=== PATIENT | female | born 1995 | race American Indian/Alaskan Native ===

== ENCOUNTER 2016-10-15 09:25 | Emergency (ER) | payer BC, OTHER ==
[2016-10-15 09:40] VITALS: BP 117/74
[2016-10-15] MEDS ORDERED: Amoxicillin 500 MG Cap PO ONE (09:55)
--- NOTE | 2016-10-15 10:02 | EDM.PDOC ---
ED HPI RENAL/ - General Chief Complaint: Genitourinary Problem Stated Complaint: [id number] UTI Time Seen by Provider: 10/15/16 09:59 Source of Information: Reports: Patient History Limitations: Reports: No limitations - History of Present Illness INITIAL COMMENTS - FREE TEXT/NARRATIVE: 20 yo [place] Female c/o left low back pain and dysuria X 3 days. Pt. admits to IUP approx. 6 weeks Symptom Onset Date: 10/12/16 Symptom Onset Time: 12:00 Timing/Duration: Reports: Day(s): Location: Reports: suprapubic Quality: Reports: cramping Severity: moderate Worsens with: Reports: urinating Associated Symptoms: Reports: burning, dysuria, frequency, urgency - Related Data Allergies/ADRs: Allergies Allergy/AdvReac Type Severity Reaction Status Date / Time acetaminophen Allergy Rash Verified 10/15/16 09:37 [From Tylenol-Codeine] codeine phosphate Allergy Rash Verified 10/15/16 09:37 [From Tylenol-Codeine] erythromycin base Allergy Rash Verified 10/15/16 09:37 [Erythromycin Base] Home Meds: Home Meds . [No Known Home Meds] 11/23/15 [History] Past Medical History Respiratory History: Reports: Asthma Other Respiratory History: has not taken advair for a long time Gastrointestinal History: Reports: GERD Genitourinary History: Reports: UTI, recurrent Musculoskeletal History: Reports: Other (see below) Other Musculoskeletal History: left hip dysplasia - Infectious Disease History Infectious Disease History: Reports: MRSA - Past Surgical History HEENT Surgical History: Reports: Adenoidectomy, Tonsillectomy Musculoskeletal Surgical History: Reports: Other (see below) Other Musculoskeletal Surgeries/Procedures:: x 7 surgeries on left hip Social & Family History - Family History Family Medical History: Noncontributory - Tobacco Use Smoking Status *Q: Former Smoker Years of Tobacco use: 5 Packs/Tins Daily: 2 Used Tobacco, but Quit: No Second Hand Smoke Exposure: Yes - Caffeine Use Caffeine Use: Reports: None - Alcohol Use Days Per Week of Alcohol Use: 1 Number of Drinks Per Day: 2 Total Drinks Per Week: 2 - Recreational Drug Use Recreational Drug Use: No Drug Use in Last 12 Months: No - Living Situation & Occupation Living situation: Reports: with family Occupation: student ED ROS GENERAL - Review of Systems Review Of Systems: See Below Constitutional: Reports: no symptoms HEENT: Reports: No symptoms Respiratory: Reports: No Symptoms Cardiovascular: Reports: No symptoms Endocrine: Reports: no symptoms GI/Abdominal: Reports: No symptoms : Reports: dysuria, frequency Musculoskeletal: Reports: no symptoms Skin: Reports: no symptoms Neurological: Reports: No Symptoms Psychiatric: Reports: No symptoms Hematologic/Lymphatic: Reports: no symptoms Immunologic: Reports: no symptoms ED EXAM, RENAL/ - Physical Exam Exam: See Below Exam Limited By: No limitations General Appearance: alert, WD/WN, no apparent distress Eye Exam: bilateral eye: PERRL Ears: normal external exam Nose: normal inspection Throat/Mouth: Normal inspection Head: atraumatic Neck: normal inspection Respiratory/Chest: no respiratory distress, lungs clear Cardiovascular: normal peripheral pulses, regular rate, rhythm GI/Abdominal: tender (suprapubic) Back Exam: normal inspection, full range of motion, CVA tenderness (L), other Extremities: normal inspection Neurological: alert, oriented, CN II-XII intact Psychiatric: normal affect, normal mood Skin Exam: Warm, Dry, Intact Lymphatic: no adenopathy Course - Vital Signs Last Recorded V/S: Last Vital Signs Temp 36.6 C 10/15/16 09:37 Pulse 81 10/15/16 09:37 Resp 18 10/15/16 09:37 BP 117/74 10/15/16 09:37 Pulse Ox 100 10/15/16 09:37 - Orders/Labs/Meds Orders: Active Orders 24 hr Category Date Time Status CULTURE URINE [RM] Stat Lab 10/15/16 09:54 Uncollected Labs: Laboratory Tests 10/15/16 Range/Units 09:30 Urine Color Yellow (YELLOW) Urine Appearance Turbid (CLEAR) Urine pH 7.5 (5.0-9.0) Ur Specific [place] 1.020 (1.005-1.030) Urine Protein 100 H (NEGATIVE) Urine Glucose (UA) Negative (NEGATIVE) Urine Ketones Negative (NEGATIVE) Urine Occult Blood Large H (NEGATIVE) Urine Nitrite Negative (NEGATIVE) Urine Bilirubin Negative (NEGATIVE) Urine Urobilinogen 1.0 (0.2-1.0) mg/dL Ur Leukocyte Esterase Small H (NEGATIVE) Urine RBC >100 H /HPF Urine WBC 75-100 H (0-5/HPF) /HPF Ur Epithelial Cells Many H /HPF Urine Bacteria Many H (0-FEW/HPF) /HPF Meds: Medications Discontinued Medications Generic Name Dose Route Start Last Admin Trade Name Agnes PRN Reason Stop Dose Admin Amoxicillin 500 mg 10/15/16 09:55 10/15/16 09:59 Amoxil PO 10/15/16 09:56 500 mg ONETIME ONE Administration Departure - Departure Time of Disposition: 10:06 Disposition: Home, Self-Care 01 Condition: good Clinical Impression: UTI, Urinary tract infectious disease Qualifiers: Weeks of gestation: less than 8 weeks Qualified Code(s): Z3A.01 - Less than 8 weeks gestation of Instructions: Urinary Tract Infection, Adult, [id number] Forms: ED Department Discharge Additional Instructions: Increase intake of water and cranberry juice Take Amoxil 500mg BID # 20 - Complete F/U w/ PCP - My Orders Last 24 Hours: My Active Orders 10/15/16 09:54 CULTURE URINE [RM] Stat - Assessment/Plan Last 24 Hours: My Active Orders 10/15/16 09:54 CULTURE URINE [RM] Stat
== END 2016-10-15 10:10 | disposition home or self-care (01) ==
LOC: DL.ED 09:25
DX: O23.41 Unspecified infection of urinary tract in pregnancy, first trimester (principal); J45.909 Unspecified asthma, uncomplicated; K21.9 Gastro-esophageal reflux disease without esophagitis; Z3A.01 Less than 8 weeks gestation of pregnancy; Z88.5 Allergy status to narcotic agent; Z88.1 Allergy status to other antibiotic agents; Z98.890 Other specified postprocedural states; Z87.891 Personal history of nicotine dependence
CPT/HCPCS: 81001; 87086; 99283; A9270; 87088; 87186

== ENCOUNTER 2016-10-16 00:21 | Emergency (ER) | payer BC, OTHER ==
[2016-10-16] MEDS ORDERED: Sodium Chloride 0.9% 1,000 ML IV ONE (00:53)
--- NOTE | 2016-10-16 01:01 | EDM.PDOC ---
ED HPI RENAL/ - General Chief Complaint: Flank Pain Stated Complaint: UTI Time Seen by Provider: 10/16/16 00:40 Source of Information: Reports: Patient History Limitations: Reports: No limitations - History of Present Illness INITIAL COMMENTS - FREE TEXT/NARRATIVE: This 20 yo female patient reports to the ED with right lower back pain. The patient was seen in the ED yesterday afternoon for similar symptoms and diagnosed with a UTI. The patient was given a dose of Amoxicillin in the ED and discharged with a script for Amoxicillin. The patient admits that she did not fill the prescription, but has continued to have pain. The patient returns for further evaluation and management. Symptom Onset Date: 10/13/16 Timing/Duration: Reports: Constant, Getting worse Location: Reports: flank (left ) Quality: Reports: ache, cramping Severity: moderate Worsens with: Reports: palpation Context: Reports: other () - Related Data Allergies/ADRs: Allergies Allergy/AdvReac Type Severity Reaction Status Date / Time acetaminophen Allergy Rash Verified 10/16/16 00:38 [From Tylenol-Codeine] codeine phosphate Allergy Rash Verified 10/16/16 00:38 [From Tylenol-Codeine] erythromycin base Allergy Rash Verified 10/16/16 00:38 [Erythromycin Base] Home Meds: Home Meds . 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 OB/BYN History: DAVID unknown Musculoskeletal History: Reports: Other (see below) Other Musculoskeletal History: left hip dysplasia - Infectious Disease History Infectious Disease History: Reports: MRSA - Past Surgical History HEENT Surgical History: Reports: Adenoidectomy, Tonsillectomy Musculoskeletal Surgical History: Reports: Other (see below) Other Musculoskeletal Surgeries/Procedures:: x 7 surgeries on left hip Social & Family History - Family History Family Medical History: Noncontributory - Tobacco Use Smoking Status *Q: Former Smoker Years of Tobacco use: 5 Packs/Tins Daily: 2 Used Tobacco, but Quit: No Second Hand Smoke Exposure: Yes - Caffeine Use Caffeine Use: Reports: Tea - Alcohol Use Days Per Week of Alcohol Use: 1 Number of Drinks Per Day: 2 Total Drinks Per Week: 2 Date of Last Drink: 07/16/16 - Recreational Drug Use Recreational Drug Use: No Drug Use in Last 12 Months: No - Living Situation & Occupation Living situation: Reports: with family Occupation: student ED ROS GENERAL - Review of Systems Review Of Systems: ROS reveals no pertinent complaints other than HPI. ED EXAM, RENAL/ - Physical Exam Exam: See Below Exam Limited By: No limitations General Appearance: alert, WD/WN, moderate distress Eye Exam: bilateral eye: EOMI, normal inspection, PERRL Ears: normal external exam, normal canal, hearing grossly normal, normal TMs Nose: normal inspection, normal mucosa, no blood Throat/Mouth: Normal inspection, Normal lips, Normal teeth, Normal gums, Normal oropharynx, Normal voice, No airway compromise Head: atraumatic, normocephalic Neck: normal inspection, supple, non-tender, full range of motion Respiratory/Chest: no respiratory distress, lungs clear, normal breath sounds, no accessory muscle use, chest non-tender Cardiovascular: normal peripheral pulses, regular rate, rhythm, no edema, no gallop, no JVD, no murmur, no rub GI/Abdominal: normal bowel sounds, soft, non tender, no organomegaly, no distention, no abnormal bruit, no mass, other (obese) (Female) Exam: Deferred Rectal (Female) Exam: Deferred Back Exam: CVA tenderness (L) Extremities: normal inspection, normal range of motion, non-tender, normal capillary refill, no pedal edema Neurological: alert, oriented, CN II-XII intact, normal cognition, normal gait, normal reflexes, no motor/sensory deficits Psychiatric: normal affect, normal mood Skin Exam: Warm, Dry, Intact, Normal color, No rash Lymphatic: no adenopathy Course - Vital Signs Last Recorded V/S: Last Vital Signs Temp 36.2 C 10/16/16 02:49 Pulse 86 10/16/16 02:49 Resp 16 10/16/16 02:49 BP 116/54 L 10/16/16 02:49 Pulse Ox 98 10/16/16 02:49 - Orders/Labs/Meds Orders: Active Orders 24 hr Category Date Time Status OB Ltd 1 or More Fetus [US] Urgent Exams 10/16/16 01:49 Ordered OB Transvaginal [US] Urgent Exams 10/16/16 01:49 Ordered Phenazopyridine [Urinary Pain Relief] Med 10/16/16 02:49 Once 190 mg PO ONETIME ONE Medication Orders Phenazopyridine HCl (Urinary Pain Relief) 190 mg PO ONETIME ONE Stop: 10/16/16 02:50 Labs: Laboratory Tests 10/16/16 10/16/16 10/16/16 Range/Units 01:00 01:00 01:00 WBC 11.8 H (5.0-10.0) 10^3/uL RBC 4.29 (4.2-5.4) 10^6/uL Hgb 12.9 (12.0-16.0) g/dL Hct 38.0 (37.0-47.0) % MCV 88.6 (80-100) fL MCH 30.1 (27.0-34.0) pg MCHC 33.9 (33.0-35.0) g/dL Plt Count 215 (150-450) 10^3/uL Neut % (Auto) 67.6 (42.2-75.2) % Lymph % (Auto) 20.7 (20.5-50.1) % Miner % (Auto) 10.4 H (2-8) % Eos % (Auto) 1.0 (1.0-3.0) % Baso % (Auto) 0.3 (0.0-1.0) % Sodium 137 (135-145) mmol/L Potassium 3.6 (3.6-5.0) mmol/L Chloride 105 (101-111) mmol/L Carbon Dioxide 22.0 (21.0-31.0) mmol/L Anion Gap 13.6 BUN 7 (7-18) mg/dL Creatinine 0.6 (0.6-1.3) mg/dL Est Cr Clr Drug Dosing 135.70 mL/min Estimated GFR (MDRD) > 60 BUN/Creatinine Ratio 11.66 Glucose 117 H (74-105) mg/dL Calcium 8.8 (8.4-10.2) mg/dl Total Bilirubin 0.2 (0.2-1.0) mg/dL AST 23 (10-42) IU/L ALT 19 (10-60) IU/L Alkaline Phosphatase 63 (42-121) IU/L Total Protein 7.5 (6.7-8.2) g/dl Albumin 3.8 (3.2-5.5) g/dl Globulin 3.7 Albumin/Globulin Ratio 1.03 HCG, Qual Positive HCG, Quant (0-25) mIU/ml Beta HCG, Quant mIU/ml 10/16/16 Range/Units 01:19 WBC (5.0-10.0) 10^3/uL RBC (4.2-5.4) 10^6/uL Hgb (12.0-16.0) g/dL Hct (37.0-47.0) % MCV (80-100) fL MCH (27.0-34.0) pg MCHC (33.0-35.0) g/dL Plt Count (150-450) 10^3/uL Neut % (Auto) (42.2-75.2) % Lymph % (Auto) (20.5-50.1) % Miner % (Auto) (2-8) % Eos % (Auto) (1.0-3.0) % Baso % (Auto) (0.0-1.0) % Sodium (135-145) mmol/L Potassium (3.6-5.0) mmol/L Chloride (101-111) mmol/L Carbon Dioxide (21.0-31.0) mmol/L Anion Gap BUN (7-18) mg/dL Creatinine (0.6-1.3) mg/dL Est Cr Clr Drug Dosing mL/min Estimated GFR (MDRD) BUN/Creatinine Ratio Glucose (74-105) mg/dL Calcium (8.4-10.2) mg/dl Total Bilirubin (0.2-1.0) mg/dL AST (10-42) IU/L ALT (10-60) IU/L Alkaline Phosphatase (42-121) IU/L Total Protein (6.7-8.2) g/dl Albumin (3.2-5.5) g/dl Globulin Albumin/Globulin Ratio HCG, Qual HCG, Quant > 1370 H (0-25) mIU/ml Beta HCG, Quant 78257 mIU/ml Meds: Medications Generic Name Dose Route Start Last Admin Trade Name Freq PRN Reason Stop Dose Admin Phenazopyridine HCl 190 mg 10/16/16 02:49 Urinary Pain Relief PO 10/16/16 02:50 ONETIME ONE Discontinued Medications Generic Name Dose Route Start Last Admin Trade Name Agnes PRN Reason Stop Dose Admin Sodium Chloride 1,000 mls @ 999 mls/hr 10/16/16 00:53 10/16/16 01:01 Normal Saline IV 10/16/16 01:53 999 mls/hr .BOLUS ONE Administration Departure - Departure Time of Disposition: 02:50 Disposition: Home, Self-Care 01 Condition: fair Clinical Impression: Abdominal pain during intrauterine UTI (urinary tract infection) Qualifiers: Urinary tract infection type: acute cystitis Hematuria presence: without hematuria Qualified Code(s): N30.00 - Acute cystitis without hematuria Instructions: Urinary Tract Infection, Adult, [id number], Abdominal Pain During Forms: ED Department Discharge Care Plan Goals: The patient was advised of the examination, lab and initial ultrasound results during the visit. The patient was given a dose of Pyridium while in the ED. The patient was discharged with a script for Pyridium (200 mg) #6 to take 1 by mouth 3 times per day for 2 days. If the patient has any additional symptoms or concerns, the patient should follow-up with her primary care facility or return to the ED. - My Orders Last 24 Hours: My Active Orders 10/16/16 01:49 OB Ltd 1 or More Fetus [US] Urgent OB Transvaginal [US] Urgent 10/16/16 02:49 Phenazopyridine [Urinary Pain Relief] 190 mg PO ONETIME ONE - Assessment/Plan Last 24 Hours: My Active Orders 10/16/16 01:49 OB Ltd 1 or More Fetus [US] Urgent OB Transvaginal [US] Urgent 10/16/16 02:49 Phenazopyridine [Urinary Pain Relief] 190 mg PO ONETIME ONE
[2016-10-16 01:22] LABS: CHLORIDE,CL 105 mmol/L (101-111); SODIUM,NA 137 mmol/L (135-145)
[2016-10-16] MEDS ORDERED: Phenazopyridine 95 MG Tab PO ONE (02:49)
[2016-10-16 02:50] VITALS: BP 116/54
--- NOTE | 2016-10-30 15:18 | US ---
Addendum report: Subsequent obstetrical sonogram 26 October 2016 ([facility]) confirms "central gest ational sac with poorly defined chorionic rind and no identifiable pole". Highly unlikely that this represents "early implantation", especially 10 days after the sonogram 16 October 2016 at this in [facility] that revealed "no pole".
== END 2016-10-16 02:57 | disposition home or self-care (01) ==
LOC: DL.ED 00:21
DX: O23.11 Infections of bladder in pregnancy, first trimester (principal); J45.909 Unspecified asthma, uncomplicated; K21.9 Gastro-esophageal reflux disease without esophagitis; Z3A.01 Less than 8 weeks gestation of pregnancy; Z88.5 Allergy status to narcotic agent; Z88.1 Allergy status to other antibiotic agents; Z98.890 Other specified postprocedural states; Z87.891 Personal history of nicotine dependence
CPT/HCPCS: 36415; 76815; 76817; 80053; 84702; 84703; 85025; 96365; 99284; A9270; J7030

== ENCOUNTER → 2016-11-01 | Day surgery (SDC) | payer BC ==
--- NOTE | 2016-10-31 13:10 | HP ---
HISTORY: This patient is a 20-year-old, 1, para 0, patient who has been thoroughly discussed with me by Dr. Barry. Unfortunately, the patient does have a blighted ovum or missed with no evidence whatsoever of course of viability. She did have [address] [facility] and those were abnormal not showing a normal gestation. A confirmatory ultrasound was done at [facility] on 10/26/2016, which also revealed no evidence of early gestation viability and this does represent a blighted ovum or missed . She has not had any bleeding or cramping. We did thoroughly discuss with her the option of utilizing Cytotec cautiously to evacuate the uterus versus possible D and C, the patient has definitely chosen to proceed with D and C, surgical management. Her blood type is B positive. Also I note that the patient did have a visit to the emergency room on 10/16/2016, for urinary tract infection, this was treated with ampicillin she states that her urinary symptoms have now cleared or no longer there. PAST MEDICAL HISTORY: She denies any knowledge of heart, liver, or kidney disease. She does have a past history of asthma and she does take Advair p.r.n. for this and she states that her asthma is currently stable. She also has a history of depression and has been followed at [facility] by the counselor Christa Justin. She states that her depression is stable also. ALLERGIES: Consist of erythromycin, Tylenol, and codeine all of which cause swelling, she states. SOCIAL HISTORY: The patient did have 7 beers to drink on the day before her clinic visit and the clinic visit was yesterday on 10/30/2016. PAST SURGICAL HISTORY: She also has had extensive surgical history, having had 7 surgeries on her hips before for hip dysplasia and these surgeries were done at [facility] in [facility]. She states that at one of those surgeries, she did have trouble with anesthesia and it sounds like she did have some bronchospasm that she says did respond to albuterol. We will thoroughly discuss her preoperatively with Anesthesia at [facility]. She also has had screws placed in the left knee before because of trauma. She also has had a T and A before as well as surgery as a that might have possibly been diaphragmatic hernia repair versus possible gastroschisis repair, we will search further in the electronic health record to try to clarify that since the patient is not able to give me further details. PAST FAMILY MEDICAL HISTORY: Her mother and grandmother have had diabetes. SOCIAL HISTORY: She is a nonsmoker and admits to occasionally using alcohol. She did drink 7 beers on 10/29/2016. We have urged her to avoid alcohol for the next day or 2 until we do her surgery and then of course, it would be prudent to avoid alcohol postoperatively and in the future etc. She does live in [place] [facility] and is single and works at [employer]. REVIEW OF SYSTEMS: Cardiorespiratory: She denies any chest pain or dyspnea or wheezing at the present. : Essentially negative. GI: Essentially negative. Neuropsychiatric: Any depression that she has had before is now stable she says. PHYSICAL EXAMINATION: Vital Signs: Blood pressure 110/70, weight 224 pounds, pulse is 70. HEENT: The sclerae are nonicteric. There is no thyromegaly. Lungs: Clear to A. Heart: Regular rhythm without murmur. Abdomen: Soft, slightly corpulent and no palpable masses or tenderness. There is negative CVA tenderness. Pelvic: Exam will be repeated again when under anesthesia in the operating room. Recent OB ultrasound from 3 days ago revealed no evidence of true uterine enlargement and no evidence of viable gestation. Extremities: Negative. Neurologic: Grossly intact. IMPRESSION: 20-year-old, 1, who would have been at approximately 7 weeks gestation with blighted ovum or missed . She has not had any recent bleeding or cramping or spotting. Her blood type is B positive. We did thoroughly discuss with her the option of utilizing Cytotec cautiously to evacuate the uterus versus D and C, she definitely has chosen D and C as her method of management. We did thoroughly discuss with her the goals and procedures for D and C as well as the slight possibility for complication such as infection, perforation, and hemorrhage. She does give consent for the D and C procedure. We will utilize preoperative antibiotics in the form of Ancef 2 g IV preoperatively. Also we will thoroughly discuss her with Anesthesia. [facility] /[id number]
[~2016-11-01] MED LIST: Ferric Subsulfate Topical Soln 8 GM (8 ML) Bottle ONE; Lactated Ringers 1,000 ML IV SCH; Silver Nitrate Applicator Each ONE; ceFAZolin 2 GM in Premix Bag 1 BAG IV ONE
[2016-11-01 11:42] VITALS: BP 110/61
== END ==
LOC: DL.SDS 11:31
PROVIDERS: ATTEND Obstetrics & Gynecology
DX: O02.0 Blighted ovum and nonhydatidiform mole (principal); J02.9 Acute pharyngitis, unspecified; Z53.09 Procedure and treatment not carried out because of other contraindication; Z98.890 Other specified postprocedural states; Z88.5 Allergy status to narcotic agent; Z88.1 Allergy status to other antibiotic agents; Z88.8 Allergy status to other drugs, medicaments and biological substances
CPT/HCPCS: 36415; 85027; 87081; 87430

== ENCOUNTER → 2016-11-04 | Day surgery (SDC) | payer BC ==
[~2016-11-04] MED LIST changes: +Albuterol/Ipratropium 3.0-0.5 MG/3 ML Neb Soln NEB ONE; +Famotidine 20 MG/2 ML SDV IV ONE; +Famotidine 20 MG/2 ML SDV ONE; +Ketorolac 30 MG/ML SDV IVPUSH ONE; +Ketorolac 30 MG/ML SDV ONE; +Lactated Ringers 700 ML IV ONE; +Lidocaine 2% 20 ML MDV ONE; +Metoclopramide 10 MG/2 ML SDV IV ONE; +Metoclopramide 10 MG/2 ML SDV ONE; +Midazolam 1 MG/ML 2 ML SDV IV ONE; +Midazolam 1 MG/ML 2 ML SDV ONE; +Ondansetron 4 MG/2 ML SDV IV ONE; +Ondansetron 4 MG/2 ML SDV ONE; +Oxytocin/Normal Saline 30 UNIT/500 ML BAG IV SCH; +Oxytocin/Normal Saline 30 UNIT/500 ML BAG ONE; +Propofol 200 MG/20 ML SDV IV ONE; +Propofol 200 MG/20 ML SDV ONE; +Rocuronium 100 MG/10 ML MDV ONE; +Rocuronium 50 MG/5 ML Vial IV ONE; +Silver Nitrate Applicator Each TOP ONE; +Sodium Chloride 0.9% 10 ML Syringe FLUSH PRN; +Succinylcholine 200 MG/10 ML MDV IV ONE; +Succinylcholine 200 MG/10 ML MDV ONE; -ceFAZolin 2 GM in Premix Bag 1 BAG IV ONE; +fentaNYL 100 MCG/2 ML SDV IV ONE; +fentaNYL 100 MCG/2 ML SDV ONE
[2016-11-04 13:31] VITALS: BP 118/68
--- NOTE | 2016-11-04 16:49 | OR ---
DATE: 11/04/2016 PROCEDURE: D and C (dilation and curettage) sharp and suction. PREOPERATIVE DIAGNOSES: 1. First trimester incomplete spontaneous with retained products of conception/blighted ovum. 2. Reactive airway disease, stable. 3. Rhesus positive blood type. 4. Anxiety. POSTOPERATIVE DIAGNOSIS: 1. First trimester incomplete spontaneous with retained products of conception/blighted ovum. 2. Reactive airway disease, stable. 3. Rhesus positive blood type. 4. Anxiety. 5. Confirmed retained products of conception. PHOTOGRAPHY ASSISTANT: JUAN MANUEL VASQUEZ, PGY-III COMPLICATIONS: None. ESTIMATED BLOOD LOSS: 50 mL. FINDINGS: This 20-year-old 1 para 0 presented as scheduled for her D and C. She underwent usual sterile prep and draping. A straight cath was used and approximately 250 mL of clear urine was removed from her bladder. A bimanual exam showed the uterus to be approximately 8-week size and freely mobile. A weighted vaginal speculum was placed, and the anterior blade was placed and held by Dr. Vasquez. The cervix is easily visualized and the anterior lip was grasped with a single-tooth tenaculum. Uterus sounded to 8+ cm. The cervix was dilated up to the largest Hegar dilator without difficulty. The curved 8 suction tip was placed without difficulty and the uterine contents were removed without difficulty. A sharp curette was used to confirm that the uterine mendoza appeared free of any retained products of conception or clots or debris. The uterine mendoza appeared gritty. There did not appear to be any further retained tissue. Uterus again sounded to 8+ cm. There was no significant active uterine bleeding at this time. The single-tooth tenaculum was removed and one of the puncture sites was noted to be bleeding and was cauterized with silver nitrate stick with excellent results. No active bleeding was noted, and the vaginal instruments were removed. Bimanual exam confirmed the uterus to be firm. The Pitocin is infusing IV. The patient tolerated the procedure well and was awakened and transferred to the recovery room in good condition. There were no intraoperative complications. As noted, her estimated blood loss is approximately 50 mL. The specimen will be sent to Pathology. IV medications include her Toradol given after the procedure. Her IV Pitocin continues to infuse and we will wean that down as tolerated pending her vaginal bleeding. We will discharge her home later today if she is doing well. Further management pending her clinical course. [facility] /[id number]
== END | disposition home or self-care (01) ==
LOC: DL.SDS 10:08
PROVIDERS: ATTEND Family Medicine
DX: O41.8X11 Other specified disorders of amniotic fluid and membranes, first trimester, fetus 1 (principal); J45.909 Unspecified asthma, uncomplicated; F41.9 Anxiety disorder, unspecified; O02.1 Missed abortion; Z98.890 Other specified postprocedural states; F17.210 Nicotine dependence, cigarettes, uncomplicated
CPT/HCPCS: 59812; J0330; J1885; J2250; J2405; J2590; J2704; J2765; J3010; J7120; S0028

== ENCOUNTER 2016-11-22 16:27 | Emergency (ER) | payer BC ==
--- NOTE | 2016-11-22 16:31 | EDM.PDOC ---
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 G1, P0,sAb1 with a D&C 2 weeks ago. Denies fevers or chills. Denies flank pain. Reports painful sex last night. Quality: Reports: Ache Severity: severe Improves with: Reports: None Worsens with: Reports: None Associated Symptoms: Reports: no other symptoms Bladder Pain Score (Numeric/FACES): 10 - Related Data Allergies Allergy/AdvReac Type Severity Reaction Status Date / Time acetaminophen Allergy Rash Verified 11/04/16 10:20 [From Tylenol-Codeine] codeine phosphate Allergy Rash Verified 11/04/16 10:20 [From Tylenol-Codeine] erythromycin base Allergy Rash Verified 11/04/16 10:20 [Erythromycin Base] Home Meds: Home Meds Fluticasone/Salmeterol [Advair Diskus 500-50] 1 puff INH BID 10/31/16 [History] Past Medical History Cardiovascular History: Reports: None Respiratory History: Reports: Asthma Other Respiratory History: HX OF BRONCHOSPASM, has not taken advair for a long time Gastrointestinal History: Reports: GERD Genitourinary History: Reports: UTI, recurrent 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: , 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 Other OB/BYN History: DAVID unknown Musculoskeletal History: Reports: Other (see below) Other Musculoskeletal History: left hip dysplasia Neurological History: Reports: Migraines Psychiatric History: Reports: Panic attack Endocrine/Metabolic History: Reports: None Hematologic History: Reports: None Immunologic History: Reports: None Oncologic (Cancer) History: Reports: None Dermatologic History: Reports: None - Infectious Disease History Infectious Disease History: Reports: MRSA - Past Surgical History Head Surgeries/Procedures: Reports: None HEENT Surgical History: Reports: Adenoidectomy, Tonsillectomy Respiratory Surgical History: Reports: None GI Surgical History: Reports: None Female Surgical History: Reports: None, D&C (November 2016) Musculoskeletal Surgical History: Reports: Other (see below) Other Musculoskeletal Surgeries/Procedures:: x 7 surgeries on left hip. knee surg Social & Family History - Family History Family Medical History: Noncontributory - Tobacco Use Smoking Status *Q: Former Smoker Years of Tobacco use: 5 Packs/Tins Daily: 2 Used Tobacco, but Quit: Yes Month Tobacco Last Used: 04/24/16 Second Hand Smoke Exposure: Yes - Caffeine Use Caffeine Use: Reports: Coffee, Energy drinks, Soda, Tea - Alcohol Use Days Per Week of Alcohol Use: 1 Number of Drinks Per Day: 2 Total Drinks Per Week: 2 - Recreational Drug Use Recreational Drug Use: No Drug Use in Last 12 Months: No - Living Situation & Occupation Living situation: Reports: with family Occupation: student ED ROS GENERAL - Review of Systems Review Of Systems: ROS reveals no pertinent complaints other than HPI. ED EXAM, RENAL/ - Physical Exam Exam: See Below Exam Limited By: No limitations General Appearance: obese Eye Exam: bilateral eye: normal inspection Ears: normal external exam, normal canal, hearing grossly normal, normal TMs Nose: normal inspection, normal mucosa, no blood Throat/Mouth: Normal inspection, Normal lips, Normal teeth, Normal gums, Normal oropharynx, Normal voice, No airway compromise Head: atraumatic, normocephalic Respiratory/Chest: no respiratory distress, lungs clear, normal breath sounds, no accessory muscle use, chest non-tender Cardiovascular: normal peripheral pulses, regular rate, rhythm, no edema, no gallop, no JVD, no murmur, no rub GI/Abdominal: Other (obese) Neurological: alert, oriented, CN II-XII intact, normal cognition, normal gait, normal reflexes, no motor/sensory deficits Psychiatric: normal affect, normal mood Skin Exam: Warm, Dry, Intact, Normal color, No rash Course - Vital Signs Last Recorded V/S: Last Vital Signs Temp 36.6 C 11/22/16 17:51 Pulse 85 11/22/16 17:51 Resp 16 11/22/16 17:51 BP 132/79 11/22/16 17:51 Pulse Ox 100 11/22/16 17:51 - Orders/Labs/Meds Orders: Active Orders 24 hr Category Date Time Status CULTURE URINE [RM] Stat Lab 11/22/16 17:39 Received Labs: Laboratory Tests 11/22/16 11/22/16 Range/Units 17:39 17:39 Urine Color Yellow (YELLOW) Urine Appearance Cloudy (CLEAR) Urine pH 7.0 (5.0-9.0) Ur Specific [place] 1.015 (1.005-1.030) Urine Protein 100 H (NEGATIVE) Urine Glucose (UA) Negative (NEGATIVE) Urine Ketones Negative (NEGATIVE) Urine Occult Blood Large H (NEGATIVE) Urine Nitrite Negative (NEGATIVE) Urine Bilirubin Negative (NEGATIVE) Urine Urobilinogen 1.0 (0.2-1.0) mg/dL Ur Leukocyte Esterase Moderate H (NEGATIVE) Urine RBC >100 H /HPF Urine WBC 50-75 H (0-5/HPF) /HPF Ur Epithelial Cells Few /HPF Urine Bacteria Moderate H (0-FEW/HPF) /HPF Urine HCG, Qual Negative Meds: Medications Discontinued Medications Generic Name Dose Route Start Last Admin Trade Name Agnes PRN Reason Stop Dose Admin Ciprofloxacin 500 mg 11/22/16 18:05 11/22/16 18:26 Ciprofloxacin Hcl PO 11/22/16 18:06 500 mg ONETIME ONE Administration Ceftriaxone Sodium 1 gm/ 0 gm 11/22/16 18:06 11/22/16 18:29 Lidocaine HCl 2.1 ml IM 11/22/16 18:07 2.1 inj ONETIME ONE Administration Phenazopyridine HCl 200 mg 11/22/16 18:05 11/22/16 18:27 Urinary Pain Relief PO 11/22/16 18:06 200 mg ONETIME ONE Administration Departure - Departure Time of Disposition: 18:11 Disposition: Home, Self-Care 01 Condition: fair Clinical Impression: UTI (urinary tract infection) Qualifiers: Urinary tract infection type: acute cystitis Hematuria presence: with hematuria Qualified Code(s): N30.01 - Acute cystitis with hematuria - Discharge Information Instructions: Urinary Tract Infection, Adult, [id number] Forms: ED Department Discharge Additional Instructions: RX: Cipro 500mg. RX: Pyridium 200mg. Drink plenty of water. No sexual activity for 7 days. Follow up in clinic in 7-10 days for urine recheck. - My Orders Last 24 Hours: My Active Orders 11/22/16 17:39 CULTURE URINE [RM] Stat - Assessment/Plan Last 24 Hours: My Active Orders 11/22/16 17:39 CULTURE URINE [RM] Stat
[2016-11-22 17:52] VITALS: BP 132/79
[2016-11-22] MEDS ORDERED: Ciprofloxacin 500 MG Tab PO ONE (18:05)
[2016-11-22] MEDS ORDERED: Phenazopyridine 95 MG Tab PO ONE (18:05)
[2016-11-22] MEDS ORDERED: cefTRIAXone 1 GM, Lidocaine 1% 2.1 ML IM ONE ×2 (18:06)
== END 2016-11-22 18:42 | disposition home or self-care (01) ==
LOC: DL.ED 16:27
DX: N30.01 Acute cystitis with hematuria (principal); J45.909 Unspecified asthma, uncomplicated; K21.9 Gastro-esophageal reflux disease without esophagitis; G43.909 Migraine, unspecified, not intractable, without status migrainosus; Z90.49 Acquired absence of other specified parts of digestive tract; Z87.891 Personal history of nicotine dependence; Z88.8 Allergy status to other drugs, medicaments and biological substances; Z88.6 Allergy status to analgesic agent
CPT/HCPCS: 81001; 81025; 87086; 96372; 99283; A9270; J0696; 87088; 87186

== ENCOUNTER 2017-04-18 23:11 | Emergency (ER) | payer BC, OTHER ==
[2017-04-18 23:39] VITALS: BP 122/77
[2017-04-18] MEDS ORDERED: Cephalexin 500 MG Cap PO ONE (23:40)
--- NOTE | 2017-04-18 23:47 | EDM.PDOC ---
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 pain worse with movement, Notes 17 weeks , SAB1. No discharge or spotting. . Some recent constipation also. LMP December 21 , Has had US done in [place]. Onset: Today, Sudden (after lifting) Treatments AUDIO/VIDEO ENGINEER: Reports: Other (see below) Other Treatments AUDIO/VIDEO ENGINEER: none Bilateral Lower Abdomen Pain Score (Numeric/FACES): 7 - Related Data Allergies Allergy/AdvReac Type Severity Reaction Status Date / Time acetaminophen Allergy Rash Verified 04/18/17 23:39 [From Tylenol-Codeine] codeine phosphate Allergy Rash Verified 04/18/17 23:39 [From Tylenol-Codeine] erythromycin base Allergy Rash Verified 04/18/17 23:39 [Erythromycin Base] Home Meds: Home Meds PNV95/Ferrous Fumarate/FA [ Vitamin Tablet] 1 each PO DAILY 04/18/17 [ History] Past Medical History Cardiovascular History: Reports: None Respiratory History: Reports: Asthma Other Respiratory History: HX OF BRONCHOSPASM, has not taken advair for a long time Gastrointestinal History: Reports: GERD Genitourinary History: Reports: UTI, Recurrent 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: , 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 Other OB/BYN History: DAVID unknown Musculoskeletal History: Reports: Other (See Below) Other Musculoskeletal History: left hip dysplasia Neurological History: Reports: Migraines Psychiatric History: Reports: Panic Attack Endocrine/Metabolic History: Reports: None Hematologic History: Reports: None Immunologic History: Reports: None Oncologic (Cancer) History: Reports: None Dermatologic History: Reports: None - Infectious Disease History Infectious Disease History: Reports: MRSA - Past Surgical History Musculoskeletal Surgical History: Reports: Other (See Below) Social & Family History - Family History Family Medical History: Noncontributory - Tobacco Use Smoking Status *Q: Former Smoker Years of Tobacco use: 5 Packs/Tins Daily: 2 Used Tobacco, but Quit: Yes Month Tobacco Last Used: 04/24/16 Second Hand Smoke Exposure: Yes - Caffeine Use Caffeine Use: Reports: Coffee, Energy Drinks, Soda, Tea - Alcohol Use Days Per Week of Alcohol Use: 1 Number of Drinks Per Day: 2 Total Drinks Per Week: 2 - Recreational Drug Use Recreational Drug Use: No Drug Use in Last 12 Months: No - Living Situation & Occupation Living situation: Reports: with Family Occupation: Student ED ROS GENERAL - Review of Systems Review Of Systems: ROS reveals no pertinent complaints other than HPI. ED EXAM, RENAL/ - Physical Exam Exam: See Below Exam Limited By: No Limitations General Appearance: Alert, No Apparent Distress Ears: Hearing Grossly Normal Throat/Mouth: Normal Inspection Head: Atraumatic, Normocephalic Neck: Normal Inspection Respiratory/Chest: No Respiratory Distress, Lungs Clear, Normal Breath Sounds Cardiovascular: Normal Peripheral Pulses, Regular Rate, Rhythm GI/Abdominal: Normal Bowel Sounds, Soft, Tender (mild bilateral low abd above groin). No: Distended, Guarding (Female) Exam: Deferred Back Exam: Normal Inspection Extremities: Normal Inspection, Normal Range of Motion Neurological: Alert, Oriented Psychiatric: Anxious Skin Exam: Warm, Dry, Intact, Normal Color Course - Vital Signs Last Recorded V/S: Last Vital Signs Temp 97.7 F 04/18/17 23:13 Pulse 100 04/18/17 23:13 Resp 16 04/18/17 23:13 BP 122/77 04/18/17 23:13 Pulse Ox 100 04/18/17 23:13 - Orders/Labs/Meds Orders: Active Orders 24 hr Category Date Time Status CULTURE URINE [RM] Stat Lab 04/18/17 23:22 Received Labs: Laboratory Tests 04/18/17 Range/Units 23:23 Urine Color Yellow (YELLOW) Urine Appearance Cloudy (CLEAR) Urine pH 6.0 (5.0-9.0) Ur Specific [place] 1.025 (1.005-1.030) Urine Protein Negative (NEGATIVE) Urine Glucose (UA) Negative (NEGATIVE) Urine Ketones Trace H (NEGATIVE) Urine Occult Blood Negative (NEGATIVE) Urine Nitrite Negative (NEGATIVE) Urine Bilirubin Negative (NEGATIVE) Urine Urobilinogen 1.0 (0.2-1.0) mg/dL Ur Leukocyte Esterase Small H (NEGATIVE) Urine RBC 0-5 /HPF Urine WBC 5-10 H (0-5/HPF) /HPF Ur Epithelial Cells Many H /HPF Urine Bacteria Many H (0-FEW/HPF) /HPF Urinalysis Comment Meds: Medications Discontinued Medications Generic Name Dose Route Start Last Admin Trade Name Agnes PRN Reason Stop Dose Admin Cephalexin 500 mg 04/18/17 23:40 Keflex PO 04/18/17 23:41 ONETIME ONE Departure - Departure Time of Disposition: 23:44 Disposition: Home, Self-Care 01 Condition: Good Clinical Impression: UTI (urinary tract infection) during Qualifiers: Trimester: first trimester Qualified Code(s): O23.41 - Unspecified infection of urinary tract in , first trimester - Discharge Information Instructions: Constipation, Adult, [id number], Urinary Tract Infection, Adult , Zaha-ho-Rzip Forms: ED Department Discharge Additional Instructions: rest increase fluids keflex 500mg one twice daily for one week Follow up with [facility] pedro - My Orders Last 24 Hours: My Active Orders 04/18/17 23:22 CULTURE URINE [RM] Stat - Assessment/Plan Last 24 Hours: My Active Orders 04/18/17 23:22 CULTURE URINE [RM] Stat
== END 2017-04-18 23:59 | disposition home or self-care (01) ==
LOC: DL.ED 23:11
DX: O23.42 Unspecified infection of urinary tract in pregnancy, second trimester (principal); Z88.8 Allergy status to other drugs, medicaments and biological substances; Z88.1 Allergy status to other antibiotic agents; Z79.899 Other long term (current) drug therapy; Z87.891 Personal history of nicotine dependence; Z3A.17 17 weeks gestation of pregnancy
CPT/HCPCS: 81001; 87086; 99284; A9270

== ENCOUNTER 2017-09-17 10:44 | Inpatient (IN) | payer BC, OTHER ==
[2017-09-17] MEDS: Lactated Ringers 1,000 ML IV SCH ×3 (16:00→22:00)
[2017-09-17] MEDS ORDERED: Methylergonovine 0.2 MG/1 ML Amp IM PRN (16:27)
[2017-09-17] MEDS ORDERED: Sodium Chloride 0.9% 10 ML Syringe FLUSH PRN (16:27)
[2017-09-17] MEDS ORDERED: Ondansetron 4 MG/2 ML SDV IV PRN (16:27)
[2017-09-17] MEDS ORDERED: Misoprostol 400 MCG (4 X 100 MCG TAB) RECTAL PRN (16:27)
[2017-09-17] MEDS ORDERED: Carboprost Tromethamine 250 MCG/1 ML Amp IM PRN (16:27)
[2017-09-17] MEDS ORDERED: Nalbuphine 20 MG/1 ML Amp IVPUSH PRN (16:27)
[2017-09-17] MEDS ORDERED: Tranexamic Acid 1,000 MG in Sodium Chloride 0.9% 100 ML IV PRN (16:27)
[2017-09-17] MEDS ORDERED: fentaNYL 100 MCG/2 ML SDV IVPUSH PRN (16:27)
[2017-09-17] MEDS ORDERED: Lactated Ringers 500 ML IV ONE (16:27)
[2017-09-17] MEDS ORDERED: Lidocaine 1% 30 ML SDV INJECT PRN (16:27)
[2017-09-17] MEDS ORDERED: Oxytocin/Normal Saline 30 UNIT/500 ML BAG IV SCH (16:30)
[2017-09-17] MEDS ORDERED: Nalbuphine 20 MG/1 ML Amp IM PRN (16:35)
[2017-09-17] MEDS ORDERED: Bupivacaine 0.75%/D5W 2 ML Amp ONE (22:01)
[2017-09-17] MEDS ORDERED: EPINEPHrine 1 MG/ML SDV ONE (22:02)
[2017-09-17] MEDS ORDERED: fentaNYL 100 MCG/2 ML SDV ONE (22:02)
--- NOTE | 2017-09-17 22:20 | HP ---
CHIEF COMPLAINT: Continuation of contractions for the past few days, increasingly uncomfortable. HISTORY OF PRESENT ILLNESS: A 21-year-old 2, para 0-0-1-0, currently at 38 and 3/7 weeks of her intrauterine , presents to Labor and Delivery again for evaluation of potential labor. 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 She is uncomfortable to the point that she cannot sleep. She denies any chest pain or shortness of breath. No blurry vision or headaches. No change in her edema. No nausea or vomiting. No right upper quadrant pain. No dysuria. No diarrhea or constipation. No fever or chills. The patient has a hard time describing exactly where her pains are and has never been through labor or force. Even had a little hard time describing what these contractions are feeling like. movement has been good. No leakage of fluid or vaginal bleeding. PAST MEDICAL HISTORY: 1. Congenital hip dysplasia, status post 7 surgeries. 2. Panic and anxiety disorder, not on medications. 3. Asthma, currently well controlled. 4. Blood type B positive. 5. History of chickenpox when she was younger. PAST SURGICAL HISTORY: 1. Tonsillectomy and adenoidectomy. 2. Seven hip surgeries. 3. Knee surgery on the left. 4. Abdominal wall scar from surgery to deal with possible gastroschisis or diaphragmatic hernia. 5. Vaginal dilatation and curettage after a spontaneous miscarriage. FAMILY HISTORY: Mother and grandmother with diabetes. Otherwise, no bleeding or clotting disorders. No defects or chromosomal abnormalities. No history of severe anesthesia reactions or seizures. 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 Father of the baby is in the [employer] and is in [employer] in [place] and will be back until November. ALLERGIES: Codeine and erythromycin. MEDICATIONS: . PHYSICAL EXAMINATION: Vital Signs: Blood pressure 136/83, pulse of 82, temperature is 97.9. HEENT: Grossly unremarkable. Neck: Supple without adenopathy. Heart: Regular without murmur. Lungs: Clear to auscultation bilaterally. Abdomen: Soft and nontender. Gravid. Fundus is firm with contractions. [place] shows contraction about every 5 to 6 minutes. heart tones are tracing, 130 beats per minute at baseline. Moderate owzs-kp-gklf variability with accelerations noted. Cervix initially 2 cm, 80%, and -1. At the time of admission, she had spontaneous rupture of clear fluid and was 3+ cm dilated, 95% effaced, and remains at -1. Extremities: No edema, erythema, or tenderness noted. LABORATORY DATA: Hemoglobin of 10.4, platelets of 152. ASSESSMENT: 1. A 38-3/7 weeks' intrauterine based on last menstrual period. 2. 2, para 0-0-1-0. 3. Rubella immune. 4. Group B Streptococcus negative. 5. Blood type B positive. 6. Anxiety with panic. 7. Failed 1-hour glucose tolerance test, passed her 3-hour test. 8. History of shingles in this . 9. Oligohydramnios in the third trimester. 10.History of bacterial vaginosis. 11.Congenital hip dysplasia. 12.Asthma. 13.Spontaneous rupture of membranes. PLAN: The patient was admitted to the hospital. Routine labor orders were written. We will be actively managing labor and anticipating vaginal delivery. The patient's questions have been answered. [facility] /[id number] YADIRA
--- NOTE | 2017-09-17 22:49 | PCM.PRNOTE ---
- Free Text/Narrative Note: Requested to provide analgesia to full term patient in severe pain. Upon entering the room, patient is supine in bed complaining of severe abdominal/ pelvic pain and discomfort. Procedure was discussed with patient including adverse outcomes and expectations. Pt consented to analgesia, SAB/IT. Pt placed into a sitting position. Landmarks for SAB/IT were identified and marked. Back was prepped with betadine x3. A sterile, transparent, fenestrated drape was applied. Excess betadine was removed. Using 3-5 mL of a 1% lidocaine solution, a skin wheel was placed at the L3/L4 interspace. A 24 ga (4 inch) Pencan spinal needle was inserted until positive for CSF. Negative for heme or paresthesias. Injected fentanyl 20 mcg, sufentanil 10 mcg, and 10 mg of a 0.75 % bupivacaine solution with an epi wash. Pt was placed left lateral position for approximately 20 minutes. There were zero complications or adverse outcomes. Will continue to monitor.
[2017-09-18] MEDS: Lactated Ringers 1,000 ML IV SCH ×3 (01:03→06:39)
[2017-09-18] MEDS ORDERED: Nalbuphine 20 MG/1 ML Amp IM ONE (01:14)
[2017-09-18] MEDS ORDERED: Bupivacaine 0.75%/D5W 2 ML Amp ONE (02:11)
[2017-09-18] MEDS ORDERED: fentaNYL 100 MCG/2 ML SDV ONE (02:12)
[2017-09-18] MEDS ORDERED: EPINEPHrine 1 MG/ML SDV ONE (02:12)
--- NOTE | 2017-09-18 02:57 | PCM.PRNOTE ---
- Free Text/Narrative Note: Requested to provide analgesia to full term patient in severe pain. Upon entering the room, patient is supine in bed complaining of severe abdominal/ pelvic pain and discomfort. Procedure was discussed with patient including adverse outcomes and expectations. Pt consented to analgesia, SAB/IT. Pt placed into a sitting position. Landmarks for SAB/IT were identified and marked. Back was prepped with betadine x3. A sterile, transparent, fenestrated drape was applied. Excess betadine was removed. Using 3 mL of a 1% lidocaine solution, a skin wheel was placed at the L3/L4 interspace. A 24 ga (4 inch) Pencan spinal needle was inserted until positive for CSF. Negative for heme or paresthesias. Injected fentanyl 20 mcg, sufentanil 10 mcg, and 9.75 mg of a 0.75% bupivacaine solution with an epi wash. Pt was placed left lateral position for approximately 20 minutes. There were zero complications or adverse outcomes. Will continue to monitor.
[2017-09-18] MEDS: Acetaminophen 325 MG Tab PO PRN (04:55)
[2017-09-18] MEDS ORDERED: Measles, Mumps & Rubella Vaccine 0.5 ML SDV SUBCUT ONE (06:38)
[2017-09-18] MEDS ORDERED: Simethicone 80 MG Tab.Chew PO PRN (06:38)
[2017-09-18] MEDS ORDERED: Benzocaine/Menthol 20%-0.5% Spray 56 GM Canister TOP PRN (06:38)
[2017-09-18] MEDS ORDERED: Ampicillin 2 GM in Sodium Chloride 0.9% 100 ML IV SCH (06:45)
[2017-09-18] MEDS: Prenatal Multivitamin with Calcium/Folic Acid/Iron Tab PO SCH (08:45)
[2017-09-18] MEDS: Docusate Sodium 100 MG Cap PO PRN ×2 (08:45→22:20)
[2017-09-18] MEDS: Ferrous Sulfate 325 MG Tab PO SCH ×2 (08:45→22:20)
--- NOTE | 2017-09-18 09:41 | DEL ---
DATE: 09/18/2017 PREPROCEDURE DIAGNOSES: 1. A 38-4/7 weeks' gestation based on 6-week ultrasound. 2. 2, para 0-0-1-0. 3. History of impaired glucose tolerance in . 1-hour glucose tolerance 146 and 3-hour 121, 120, and 92. 4. Blood type B positive, rubella nonimmune group B Streptococcus negative, such in herpes zoster in . 5. History of congenital hip dysplasia with multiple surgeries. POSTPROCEDURE DIAGNOSES: 1. A 38-4/7 weeks' gestation based on 6-week ultrasound. 2. 2, para 1-0-1-1. 3. History of impaired glucose tolerance in . 1-hour glucose tolerance 146 and 3-hour 121, 120, and 92. 4. Blood type B positive, rubella nonimmune group B Streptococcus negative, such in herpes zoster in . 5. History of congenital hip dysplasia with multiple surgeries. 6. Viable female . BRIEF HISTORY: This 21-year-old female with the above-listed diagnoses presented to the hospital this morning. At approximately 6:00, she received Vistaril for pain and contractions that were approximately 5 minutes apart. She returned to the hospital later that morning for her fourth appearance to the Labor and delivery unit over the past 3 days. She was having contractions every 5 minutes apart. On prior examinations, her cervical exam had shown 2 cm dilation. At this visit, she was found to be 3 cm dilated and was encouraged to walk around for an hour. After walking she was 4 cm dilated and spontaneously ruptured at 1345 hours. The patient was admitted for active labor. Once the patient reached 5 cm dilation, she had an intrathecal for pain management. Patient labored until she reached 10cm dilated and 100% effaced. PROCEDURE IN DETAIL: With the patient in dorsal lithotomy position, she delivered a viable female over an intact perineum. Mother was found to have a temperature of 101.8 in labor, Tylenol was given. Infant was dried and stimulated. Mouth and nose were bulb suctioned. Baby placed upon mother's abdomen. After at least 45-second delay, umbilical cord was doubly clamped and then cut. Cord blood sample was obtained. Placenta was delivered via gentle cord traction with concomitant uterine massage, was found to be effective and intact. Labia and vagina were inspected. There was a first-degree u-shaped laceration with brisk bleeding in the posterior lip of the vaginal canal that was repaired with 3-0 Vicryl. There were 2 first-degree tears along posterior wall that required [id number] sutures, which controlled the bleeding. Anterior vaginal wall had skid fonseca and abrasions from delivery that did not require sutures. The uterus during this time was having episodes of brisk bleeding, which was controlled with IV Pitocin and a dose of IV Methergine and fundal massage. The patient tolerated the procedure well with intrathecal providing numbing and pain relief for repair and fundal massage. ESTIMATED BLOOD LOSS: 400 mL. COMPLICATIONS: None FINDINGS: Viable female infant. scores of 8 and 9. weight 3275 g, 7 pounds 3 ounces. DISPOSITION: Baby was brought to the nursery due to tachycardia and concerns of infection with mother's fever in labor. After 1 hour in nursery with no interventions, vitals returned to within normal limits. Mother and baby in the room at this time. [facility] /[id number] Ayla Maria MS3 dictating for Dr. Carmina Maya. [facility]
[2017-09-18] MEDS: Ampicillin/Sulbactam Na 3 GM in Sodium Chloride 0.9% 100 ML IV SCH ×2 (12:26→18:26)
[2017-09-18] MEDS: Ibuprofen 800 MG Tab PO PRN ×2 (13:29→22:20)
[2017-09-19] MEDS: Ampicillin/Sulbactam Na 3 GM in Sodium Chloride 0.9% 100 ML IV SCH ×2 (00:10→06:52)
[2017-09-19] MEDS: Acetaminophen 325 MG Tab PO PRN (03:41)
[2017-09-19] MEDS: Ibuprofen 800 MG Tab PO PRN ×2 (08:06→21:04)
[2017-09-19] MEDS: Ferrous Sulfate 325 MG Tab PO SCH ×2 (08:06→21:03)
[2017-09-19] MEDS: Docusate Sodium 100 MG Cap PO PRN ×2 (08:06→21:04)
[2017-09-19] MEDS: Prenatal Multivitamin with Calcium/Folic Acid/Iron Tab PO SCH (08:06)
--- NOTE | 2017-09-19 10:13 | PN ---
DATE: 09/19/2017 SUBJECTIVE: Day 1 for Evy. She is tolerating a normal diet, ambulating within room to the bathroom, urinating with decreasing amount of lochia. Has not had a bowel movement, but is having flatulence. She has complaints of low back pain located to the site of her intrathecal injection. No headaches. No sharp uterine or abdominal pains. She describes pain in abdomen as more cramping and decreasing in pain frequency. She has edema of lower legs that started yesterday. She has been afebrile overnight. OBJECTIVE: Vital Signs: Temperature 98.2, pulse 87, blood pressure 117/75, respirations 20, and oxygen saturation of 100% on room air. Head: Normocephalic, atraumatic. Neck: Supple with good range of motion. Lungs: Clear to auscultation, anterior and posterior in all dee. Heart: S1, S2 regular rate and rhythm. No murmur. Pulses palpable in periphery. Abdomen: Uterus is firm below umbilicus, nontender. Extremities: There is some edema in the lower leg and feet, nonpitting. Skin: Warm, dry. LABORATORY DATA: No new laboratory data today. From 09/18/2017 - Hemoglobin 10, platelets of 147, white blood cell count of 14. ASSESSMENT: 21-year-old female, 2, para 1-0-1-1, doing well on 1 day . Due to being afebrile for 24 hours, consider discontinuing antibiotics. She shows no signs of amnionitis. PLAN: Continue regular cares. Discontinue Ampicillin-Sulbactam. We will be expecting discharge tomorrow as mother and baby are both afebrile in the next 24 hours. [facility] /[id number] seen and agreed with medical student-RONEL Maria MS3 dictating for Dr. Yasir MAY
[2017-09-19] MEDS ORDERED: Bupivacaine 0.75%/D5W 2 ML Amp ONE ×2 (16:09→16:10)
[2017-09-19] MEDS ORDERED: EPINEPHrine 1 MG/ML SDV ONE ×2 (16:09→16:10)
[2017-09-19] MEDS ORDERED: fentaNYL 100 MCG/2 ML SDV ITHECAL ONE ×2 (16:09→16:10)
[2017-09-20] MEDS: Acetaminophen 325 MG Tab PO PRN (02:00)
[2017-09-20 03:37] VITALS: BP 119/55
[2017-09-20] MEDS: Ibuprofen 800 MG Tab PO PRN (05:13)
[2017-09-20] MEDS: Ferrous Sulfate 325 MG Tab PO SCH (08:43)
[2017-09-20] MEDS: Prenatal Multivitamin with Calcium/Folic Acid/Iron Tab PO SCH (08:43)
[2017-09-20] MEDS: Docusate Sodium 100 MG Cap PO PRN (08:43)
--- NOTE | 2017-09-20 11:53 | DISCH ---
DOS: 09/20/2017 ADMISSION DIAGNOSES: 1. A 38 and 3/7 weeks' intrauterine based on last menstrual period. 2. 2, para 0-0-1-0. 3. Rubella immune. Group B streptococcus negative. Blood type B positive. 4. Anxiety with panic. 5. Failed 1-hour glucose tolerance test, passed 3-hour test. 6. History of shingles in this . 7. Resolved oligohydramnios in the third trimester. 8. History of bacterial vaginosis. 9. Congenital hip dysplasia with multiple surgeries. 10.Spontaneous rupture of membranes. DISCHARGE DIAGNOSES: 1. A 38 and 3/7 weeks' intrauterine based on last menstrual period. 2. 2, para 0-0-1-0. 3. Rubella immune. Group B streptococcus negative. Blood type B positive. 4. Anxiety with panic. 5. Failed 1-hour glucose tolerance test, passed 3-hour test. 6. History of shingles in this . 7. Resolved oligohydramnios in the third trimester. 8. History of bacterial vaginosis. 9. Congenital hip dysplasia with multiple surgeries. 10.Spontaneous rupture of membranes. 11.Delivery of a viable female infant over intact perineum. BRIEF HISTORY: This is a 21-year-old female presented to the hospital on 09/18/2017 having regular contractions for the past 3 days. She had a spontaneous rupture of membranes in the hospital while walking around. She was admitted for labor and rupture of membranes. Her cervix had progressed from 3 cm to 4 cm dilated. See admission history and physical and delivery note for full course, for further information. HOSPITAL COURSE: The patient is in labor. The patient's labor was augmented by Pitocin. She had an intrathecal for pain management and later had a spontaneous vaginal delivery with complication of a temperature of 101.8 degrees in labor. Infant was delivered over intact perineum. Mother was treated with 24-hour ampicillin and sulbactam to cover possible chorioamnionitis. Blood cultures returned negative. Mother has been afebrile since delivery. Antibiotics were stopped on 09/19/2017. Mother's delivery did require first-degree laceration repair in anterior and posterior vaginal wall. Uterus during the time of repair was having episodes of brisk bleeding which was controlled with IV Pitocin and a single dose of IV Methergine with fundal massage. The patient tolerated the procedure well with intrathecal providing numbing, and pain relief for repair and fundal massage. Since delivery, mother has been ambulating, tolerating regular diet, and voiding without complication. She states lochia has been decreasing in amount since delivery. Cramping has also been happening less often and is less severe. She still feels lower back pain located to the site of intrathecal injection. Last night, per nurses report, she felt short of breath. Oxygen saturations have been above 96% since admission. Today, she does not feel short of breath. I feel the baby will be able to go home with mom without complications. DISCHARGE CONDITION: Good. PHYSICAL EXAMINATION: Vital Signs: Temperature 98.8, pulse of 78, blood pressure 119/55, respirations of 16, and oxygen saturation of 97% on room air. Heart: Regular rate and rhythm. No murmur. Lungs: Clear to auscultation, anterior and posterior, in all dee. Abdomen: Soft and nontender. Fundus is firm at the umbilicus. Extremities: Slight nonpitting edema in legs bilaterally. No erythema or tenderness. LABORATORY DATA: No new laboratory data. Hemoglobin on the day of delivery is 10, platelets 147. No blood culture growth after two days. Cultures collected 09/18/2017. DISPOSITION: Home with family. MEDICATIONS: 1. Ibuprofen 600 mg every 6 hours as needed for pain. 2. Tylenol 650 mg every 6 hours as needed for pain. 3. Iron 325 mg twice daily. 4. Colace 100 mg twice daily as needed for constipation. INSTRUCTIONS: The patient needs to make an appointment to see Dr. Yasir Isaac for 6-week examination. She should not lift anything over 25 pounds and needs to stay on pelvic rest for those 6 weeks. Routine vaginal delivery instructions were provided, and her questions were answered. seen and agreed with med student-RONEL MODL /[id number] YADIRA
== END 2017-09-20 12:10 | disposition home or self-care (01) | DRG 560 ==
LOC: DL.OBCHECK 10:44 → DL.OB 14:50 → OBSVTOIN 09-18 05:39
PROVIDERS: ADMIT Family Medicine; ATTEND Family Medicine
PROC: 10E0XZZ Delivery of Products of Conception, External Approach (ICD-10-PCS; principal; 2017-09-18)
PROC: 0UQG7ZZ Repair Vagina, Via Natural or Artificial Opening (ICD-10-PCS; 2017-09-18)
PROC: 00HU33Z Insertion of Infusion Device into Spinal Canal, Percutaneous Approach (ICD-10-PCS; 2017-09-18)
PROC: 3E0R3BZ Introduction of Anesthetic Agent into Spinal Canal, Percutaneous Approach (ICD-10-PCS; 2017-09-18)
DX: O42.02 Full-term premature rupture of membranes, onset of labor within 24 hours of rupture (principal); O41.1230 Chorioamnionitis, third trimester, not applicable or unspecified; O75.2 Pyrexia during labor, not elsewhere classified; O71.4 Obstetric high vaginal laceration alone; Z3A.38 38 weeks gestation of pregnancy; Z37.0 Single live birth; Z88.8 Allergy status to other drugs, medicaments and biological substances
CPT/HCPCS: 36415; 51701; 59300; 59409; 81001; 83986; 85025; 85027; 87040; 90707; A9270-GY; J0171; J0295; J2210; J2300; J2590; J3010; J7050; J7120

== ENCOUNTER 2017-10-20 22:30 | Emergency (ER) | payer BC ==
[2017-10-20 22:35] VITALS: BP 108/79
--- NOTE | 2017-10-20 22:52 | EDM.PDOC ---
ED HPI GENERAL MEDICAL PROBLEM - General Chief Complaint: ENT Problem Stated Complaint: TEETH PAIN [id number] Time Seen by Provider: 10/20/17 22:52 Source of Information: Reports: Patient, RN, RN Notes Reviewed History Limitations: Reports: No Limitations - History of Present Illness INITIAL COMMENTS - FREE TEXT/NARRATIVE: Pt presents to the ER with c/o severe dental pain. She states her wisdom teeth are breaking through and she is having a lot of pain with it. She states she is at this time and she has been using Tylenol but that has not been helping. Patient also states that she has had some chest heaviness with a cough , hot and cold spells, and headache with some congestion. Pt states she is 4 weeks . Onset: Gradual Bilateral Gums Pain Score (Numeric/FACES): 10 - Related Data Allergies Allergy/AdvReac Type Severity Reaction Status Date / Time codeine Allergy Hives Verified 10/20/17 22:35 erythromycin base Allergy Rash Verified 10/20/17 22:35 [Erythromycin Base] Home Meds: Home Meds PNV95/Ferrous Fumarate/FA [ Vitamin Tablet] 1 each PO DAILY 04/18/17 [ History] Past Medical History - Past Health History Medical/Surgical History: Denies Medical/Surgical History HEENT History: Reports: None Cardiovascular History: Reports: None Respiratory History: Reports: Asthma Other Respiratory History: HX OF BRONCHOSPASM, has not taken advair for a long time Gastrointestinal History: Reports: GERD Genitourinary History: Reports: UTI, Recurrent, Other (See Below) Other Genitourinary History: BV 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: , 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 , Other (See Below) Other OB/BYN History: borderline oligohydramnios with current Musculoskeletal History: Reports: Other (See Below) Other Musculoskeletal History: left hip dysplasia Neurological History: Reports: Migraines Psychiatric History: Reports: Anxiety, Panic Attack Endocrine/Metabolic History: Reports: None Hematologic History: Reports: None Immunologic History: Reports: None Oncologic (Cancer) History: Reports: None Dermatologic History: Reports: None - Infectious Disease History Infectious Disease History: Reports: None - Past Surgical History Head Surgeries/Procedures: Reports: None HEENT Surgical History: Reports: Adenoidectomy, Tonsillectomy Respiratory Surgical History: Reports: None GI Surgical History: Reports: Other (See Below) Other GI Surgeries/Procedures: Abdominal wall surgery- as --? gastrosc vs. diaph hernia Female Surgical History: Reports: D&C Neurological Surgical History: Reports: None Musculoskeletal Surgical History: Reports: Other (See Below) Other Musculoskeletal Surgeries/Procedures:: 7 hip surgeries, knee surgery Social & Family History - Family History Family Medical History: Noncontributory - Tobacco Use Smoking Status *Q: Never Smoker Years of Tobacco use: 5 Packs/Tins Daily: 2 Used Tobacco, but Quit: Yes Month/Year Tobacco Last Used: 2015 Second Hand Smoke Exposure: No - Caffeine Use Caffeine Use: Reports: Soda - Alcohol Use Days Per Week of Alcohol Use: 1 Number of Drinks Per Day: 2 Total Drinks Per Week: 2 - Recreational Drug Use Recreational Drug Use: No Drug Use in Last 12 Months: No - Living Situation & Occupation Living situation: Reports: with Family Occupation: Student ED ROS GENERAL - Review of Systems Review Of Systems: ROS reveals no pertinent complaints other than HPI. ED EXAM, GENERAL - Physical Exam Exam: See Below Exam Limited By: No Limitations General Appearance: Alert, WD/WN, No Apparent Distress Eye Exam: Bilateral Eye: EOMI, Normal Inspection Ears: Normal External Exam, Hearing Grossly Normal Nose: Normal Inspection Throat/Mouth: Normal Inspection, Normal Lips, Normal Teeth, Normal Gums, Normal Oropharynx, Normal Voice, No Airway Compromise, Inflammation (All 4 wisdom teeth are partially broke through with swelling of the gums around it. No bleeding) Head: Atraumatic, Normocephalic Neck: Normal Inspection, Supple, Non-Tender, Full Range of Motion Respiratory/Chest: No Respiratory Distress, Lungs Clear, Normal Breath Sounds, No Accessory Muscle Use, Chest Non-Tender Cardiovascular: Normal Peripheral Pulses, Regular Rate, Rhythm, No Edema, No Gallop, No JVD, No Murmur, No Rub GI/Abdominal: Normal Bowel Sounds, Soft, Non-Tender, No Organomegaly, No Distention, No Abnormal Bruit, No Mass (Female) Exam: Deferred Rectal (Female) Exam: Deferred Back Exam: Normal Inspection, Full Range of Motion, NT Extremities: Normal Inspection, Normal Range of Motion, Non-Tender, Normal Capillary Refill, No Pedal Edema Neurological: Alert, Oriented, CN II-XII Intact, Normal Cognition, Normal Gait, Normal Reflexes, No Motor/Sensory Deficits Psychiatric: Anxious Skin Exam: Warm, Dry, Intact, Normal Color, No Rash Lymphatic: No Adenopathy Course - Vital Signs Last Recorded V/S: Last Vital Signs Temp 97.1 F 10/20/17 22:32 Pulse 101 H 10/20/17 22:32 Resp 18 10/20/17 22:32 BP 108/79 10/20/17 22:32 Pulse Ox 97 10/20/17 22:32 - Orders/Labs/Meds Meds: Medications Discontinued Medications Generic Name Dose Route Start Last Admin Trade Name Agnes PRN Reason Stop Dose Admin Hydrocodone Bitart/Acetaminophen 1 tab 10/20/17 23:05 [place]ra 325-5 Mg PO 10/20/17 23:06 ONETIME ONE - Re-Assessments/Exams Free Text/Narrative Re-Assessment/Exam: 10/20/17 23:27 The patient states she would like something stronger to take for the pain in the mouth. She states she would pump and dump her breast milk until 2 days after the last Palmyra is taken. Departure - Departure Time of Disposition: 23:05 Disposition: Home, Self-Care 01 Condition: Fair Clinical Impression: Pain, dental - Discharge Information Instructions: Pain Medicine Instructions, [id number] Forms: ED Department Discharge Additional Instructions: RX: Palmyra Drink plenty of water to prevent constipation Very important that you "pump and dump" while taking this medication while Follow up with dentist Follow up with your primary care facility Do not take Tylenol while taking this medication
[2017-10-20] MEDS ORDERED: Acetaminophen/HYDROcodone 325-5 MG Tab PO ONE (23:05)
== END 2017-10-20 23:32 | disposition home or self-care (01) ==
LOC: DL.ED 22:30
DX: O90.89 Other complications of the puerperium, not elsewhere classified (principal); K08.89 Other specified disorders of teeth and supporting structures; Z88.5 Allergy status to narcotic agent; Z88.1 Allergy status to other antibiotic agents; Z87.891 Personal history of nicotine dependence
CPT/HCPCS: 87804; 99283; A9270

== ENCOUNTER 2017-11-17 23:01 | Emergency (ER) | payer BC ==
[2017-11-17 23:19] VITALS: BP 130/68
[2017-11-17] MEDS ORDERED: Ketorolac 30 MG/ML SDV IM ONE (23:49)
--- NOTE | 2017-11-17 23:53 | EDM.PDOC ---
ED HPI GENERAL MEDICAL PROBLEM - General Chief Complaint: Lower Extremity Injury/Pain Stated Complaint: HIPS ARE HURTING [id number] Time Seen by Provider: 11/17/17 23:49 Source of Information: Reports: Patient History Limitations: Reports: No Limitations - History of Present Illness INITIAL COMMENTS - FREE TEXT/NARRATIVE: gives h/o hip problems as child and had surgery done @ [facility]. 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 denies falling onto it. hurts worse after work. Left Hip Pain Score (Numeric/FACES): 10 - Related Data Allergies Allergy/AdvReac Type Severity Reaction Status Date / Time codeine Allergy Hives Verified 10/20/17 22:35 erythromycin base Allergy Rash Verified 10/20/17 22:35 [Erythromycin Base] Home Meds: Home Meds PNV95/Ferrous Fumarate/FA [ Vitamin Tablet] 1 each PO DAILY 04/18/17 [ History] Past Medical History - Past Health History Medical/Surgical History: Denies Medical/Surgical History HEENT History: Reports: None Cardiovascular History: Reports: None Respiratory History: Reports: Asthma Other Respiratory History: HX OF BRONCHOSPASM, has not taken advair for a long time Gastrointestinal History: Reports: GERD Genitourinary History: Reports: UTI, Recurrent, Other (See Below) Other Genitourinary History: BV 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: , 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 , Other (See Below) Other OB/BYN History: borderline oligohydramnios with current Musculoskeletal History: Reports: Other (See Below) Other Musculoskeletal History: left hip dysplasia Neurological History: Reports: Migraines Psychiatric History: Reports: Anxiety, Panic Attack Endocrine/Metabolic History: Reports: None Hematologic History: Reports: None Immunologic History: Reports: None Oncologic (Cancer) History: Reports: None Dermatologic History: Reports: None - Infectious Disease History Infectious Disease History: Reports: None - Past Surgical History Head Surgeries/Procedures: Reports: None HEENT Surgical History: Reports: Adenoidectomy, Tonsillectomy Respiratory Surgical History: Reports: None GI Surgical History: Reports: Other (See Below) Other GI Surgeries/Procedures: Abdominal wall surgery- as --? gastrosc vs. diaph hernia Female Surgical History: Reports: D&C Neurological Surgical History: Reports: None Musculoskeletal Surgical History: Reports: Other (See Below) Other Musculoskeletal Surgeries/Procedures:: 7 hip surgeries, knee surgery Social & Family History - Family History Family Medical History: Noncontributory - Tobacco Use Smoking Status *Q: Never Smoker Years of Tobacco use: 5 Packs/Tins Daily: 2 Used Tobacco, but Quit: Yes Month/Year Tobacco Last Used: 2015 Second Hand Smoke Exposure: No - Caffeine Use Caffeine Use: Reports: Soda - Alcohol Use Days Per Week of Alcohol Use: 1 Number of Drinks Per Day: 2 Total Drinks Per Week: 2 - Recreational Drug Use Recreational Drug Use: No Drug Use in Last 12 Months: No - Living Situation & Occupation Living situation: Reports: with Family Occupation: Student Review of Systems - Review of Systems Review Of Systems: ROS reveals no pertinent complaints other than HPI. ED EXAM, GENERAL - Physical Exam Exam: See Below Exam Limited By: No Limitations General Appearance: Alert, WD/WN, Mild Distress, Other (upset) Eye Exam: Bilateral Eye: PERRL (pupils ER @ 4mm) Ears: Hearing Grossly Normal Throat/Mouth: Normal Voice, No Airway Compromise Head: Atraumatic Neck: Non-Tender, Full Range of Motion Respiratory/Chest: No Respiratory Distress Cardiovascular: Regular Rate, Rhythm GI/Abdominal: Soft, Non-Tender Back Exam: Other (left hip tender, gait limited to pain. NV wnl) Neurological: Alert, Oriented, Normal Cognition, No Motor/Sensory Deficits Psychiatric: Anxious Skin Exam: Warm, Dry, Normal Color Lymphatic: No Adenopathy Course - Vital Signs Last Recorded V/S: Last Vital Signs Temp 36.6 C 11/17/17 23:07 Pulse 101 H 11/17/17 23:07 Resp 22 H 11/17/17 23:07 BP 130/68 11/17/17 23:07 Pulse Ox 99 11/17/17 23:07 - Orders/Labs/Meds Meds: Medications Discontinued Medications Generic Name Dose Route Start Last Admin Trade Name Freq PRN Reason Stop Dose Admin Ketorolac Tromethamine 30 mg 11/17/17 23:49 11/17/17 23:53 Toradol IM 11/17/17 23:50 30 mg ONETIME ONE Administration - Re-Assessments/Exams Free Text/Narrative Re-Assessment/Exam: 11/18/17 00:22 re-exam; s/p IM toradol = better. Departure - Departure Time of Disposition: 00:22 Disposition: Home, Self-Care 01 Condition: Good Clinical Impression: Hip pain, left - Discharge Information Instructions: Hip Pain Forms: ED Department Discharge Additional Instructions: 1) rest and avoid bending lifting straining next 5 days 2) try ice or heat to sore areas 3) see clinic Sunday for ORTHOPEDIC REFERRAL for juvenile hip dysplasia problems rx given; flexeril 10mg bid prn x 12
== END 2017-11-18 00:35 | disposition home or self-care (01) ==
LOC: DL.ED 23:01
DX: O90.89 Other complications of the puerperium, not elsewhere classified (principal); M25.552 Pain in left hip; Z88.5 Allergy status to narcotic agent; Z88.1 Allergy status to other antibiotic agents; Z87.891 Personal history of nicotine dependence
CPT/HCPCS: 96372; 99282; J1885

== ENCOUNTER 2017-11-25 03:36 | Emergency (ER) | payer BC ==
[2017-11-25 02:57] VITALS: BP 135/85
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
[2017-11-25 03:21] LABS: CHLORIDE,CL 108 mmol/L (101-111); SODIUM,NA 140 mmol/L (135-145)
[2017-11-25] MEDS ORDERED: Cephalexin 500 MG Cap PO ONE (04:10)
== END 2017-11-25 04:33 | disposition home or self-care (01) ==
LOC: DL.ED 03:36
DX: S02.2XXB Fracture of nasal bones, initial encounter for open fracture (principal); Z88.5 Allergy status to narcotic agent; Z88.1 Allergy status to other antibiotic agents; Y04.2XXA Assault by strike against or bumped into by another person, initial encounter
CPT/HCPCS: 36415; 70486; 72125; 80053; 80305; 81001; 81025; 85025; 99284; A9270; G0480

== ENCOUNTER 2017-11-25 22:09 | Emergency (ER) | payer BC ==
[2017-11-25 22:30] VITALS: BP 124/75
[2017-11-25] MEDS ORDERED: Ketorolac 30 MG/ML SDV IM ONE (23:47)
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
== END 2017-11-26 00:12 | disposition home or self-care (01) ==
LOC: DL.ED 22:09
DX: G44.311 Acute post-traumatic headache, intractable (principal); S02.2XXD Fracture of nasal bones, subsequent encounter for fracture with routine healing; Y04.8XXD Assault by other bodily force, subsequent encounter; Z88.5 Allergy status to narcotic agent; Z88.1 Allergy status to other antibiotic agents
CPT/HCPCS: 96372; 99283; J1885

== ENCOUNTER 2017-12-04 21:55 | Emergency (ER) | payer BC ==
[2017-12-04 22:11] VITALS: BP 118/59
[2017-12-04] MEDS ORDERED: Albuterol/Ipratropium 3.0-0.5 MG/3 ML Neb Soln NEB ONE (22:32)
--- NOTE | 2017-12-04 22:39 | EDM.PDOC ---
ED HPI GENERAL MEDICAL PROBLEM - General Chief Complaint: Respiratory Problem Stated Complaint: ANXIETY AND ASTHMA IS BAD Time Seen by Provider: 12/04/17 22:20 Source of Information: Reports: Patient History Limitations: Reports: No Limitations - History of Present Illness INITIAL COMMENTS - FREE TEXT/NARRATIVE: hard time catching breath , seems heavy, Hx asthma but not had problems for few years. Pike same. No fevers or chills Maybe some anxiety, States not getting as much help with 2 month baby from grandmother as promised, not sleeping well. Frontal Head Pain Score (Numeric/FACES): 2 - Related Data Allergies Allergy/AdvReac Type Severity Reaction Status Date / Time codeine Allergy Hives Verified 12/04/17 22:11 erythromycin base Allergy Rash Verified 12/04/17 22:11 [Erythromycin Base] Home Meds: Home Meds PNV95/Ferrous Fumarate/FA [ Vitamin Tablet] 1 each PO DAILY 04/18/17 [ History] Past Medical History - Past Health History Medical/Surgical History: Denies Medical/Surgical History HEENT History: Reports: None Cardiovascular History: Reports: None Respiratory History: Reports: Asthma Other Respiratory History: HX OF BRONCHOSPASM, has not taken advair for a long time Gastrointestinal History: Reports: GERD Genitourinary History: Reports: UTI, Recurrent, Other (See Below) Other Genitourinary History: BV 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: , 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 , Other (See Below) Other OB/BYN History: borderline oligohydramnios with current Musculoskeletal History: Reports: Other (See Below) Other Musculoskeletal History: left hip dysplasia Neurological History: Reports: Migraines Psychiatric History: Reports: Anxiety, Panic Attack Endocrine/Metabolic History: Reports: None Hematologic History: Reports: None Immunologic History: Reports: None Oncologic (Cancer) History: Reports: None Dermatologic History: Reports: None - Infectious Disease History Infectious Disease History: Reports: None - Past Surgical History Head Surgeries/Procedures: Reports: None HEENT Surgical History: Reports: Adenoidectomy, Tonsillectomy Respiratory Surgical History: Reports: None GI Surgical History: Reports: Other (See Below) Other GI Surgeries/Procedures: Abdominal wall surgery- as --? gastrosc vs. diaph hernia Female Surgical History: Reports: D&C Neurological Surgical History: Reports: None Musculoskeletal Surgical History: Reports: Other (See Below) Other Musculoskeletal Surgeries/Procedures:: 7 hip surgeries, knee surgery, broken nose Social & Family History - Family History Family Medical History: Noncontributory - Tobacco Use Smoking Status *Q: Never Smoker Second Hand Smoke Exposure: Yes - Caffeine Use Caffeine Use: Reports: Coffee, Soda, Tea - Recreational Drug Use Recreational Drug Use: No - Living Situation & Occupation Living situation: Reports: with Family Occupation: Student ED ROS GENERAL - Review of Systems Review Of Systems: ROS reveals no pertinent complaints other than HPI. ED EXAM, GENERAL - Physical Exam Exam: See Below Exam Limited By: No Limitations General Appearance: Alert, No Apparent Distress Eye Exam: Bilateral Eye: EOMI Ears: Normal External Exam Ear Exam: Bilateral Ear: TM normal Nose: Normal Inspection Throat/Mouth: Normal Inspection Head: Atraumatic Neck: Normal Inspection, Full Range of Motion Respiratory/Chest: No Respiratory Distress, Decreased Breath Sounds (slight bilateral bases). No: Crackles, Rales, Rhonchi, Wheezing Cardiovascular: Normal Peripheral Pulses, Regular Rate, Rhythm Back Exam: Normal Inspection Extremities: Normal Inspection Neurological: Alert, Oriented Psychiatric: Normal Affect, Normal Mood Skin Exam: Warm, Dry, Intact, Normal Color Course - Vital Signs Last Recorded V/S: Last Vital Signs Temp 97 F 12/04/17 22:01 Pulse 103 H 12/04/17 22:01 Resp 21 H 12/04/17 22:01 BP 118/59 L 12/04/17 22:01 Pulse Ox 99 12/04/17 22:01 - Orders/Labs/Meds Orders: Active Orders 24 hr Category Date Time Status RT Aerosol Therapy [RC] ASDIRECTED Care 12/04/17 22:32 Active Meds: Medications Discontinued Medications Generic Name Dose Route Start Last Admin Trade Name Agnes PRN Reason Stop Dose Admin Albuterol/Ipratropium 3 ml 12/04/17 22:32 12/04/17 22:39 Duoneb 3.0-0.5 Mg/3 Ml NEB 12/04/17 22:33 3 ml ONETIME ONE Administration Departure - Departure Time of Disposition: 22:46 Disposition: Home, Self-Care 01 Condition: Good Clinical Impression: Anxiety - Discharge Information Instructions: Shortness of Breath, Adult, [id number] Referrals: Yasir Isaac MD [Primary Care Provider] - Forms: ED Department Discharge Additional Instructions: melatonin 2 hours prior to bed follow up clinic with primary care to discuss anxiety - My Orders Last 24 Hours: My Active Orders 12/04/17 22:32 RT Aerosol Therapy [RC] ASDIRECTED - Assessment/Plan Last 24 Hours: My Active Orders 12/04/17 22:32 RT Aerosol Therapy [RC] ASDIRECTED
== END 2017-12-04 22:57 | disposition home or self-care (01) ==
LOC: DL.ED 21:55
DX: F41.9 Anxiety disorder, unspecified (principal); F41.0 Panic disorder [episodic paroxysmal anxiety]; Z77.22 Contact with and (suspected) exposure to environmental tobacco smoke (acute) (chronic); Z88.5 Allergy status to narcotic agent; Z88.1 Allergy status to other antibiotic agents
CPT/HCPCS: 99284